=== PATIENT | female | born 1995 | race Caucasian/White ===

== ENCOUNTER 2016-12-06 17:14 | Emergency (ER) | payer OTHER ==
[2016-12-06 19:14] LABS: BILIRUBIN NEGATIVE (NEGATIVE); BLOOD 2+ Ery/uL (NEGATIVE); CLARITY SLIGHTLY HAZY (CLEAR); COLOR YELLOW (YELLOW); GLUCOSE (U) NORMAL (NORMAL); KETONE (U) NEGATIVE (NEGATIVE); LEUKOCYTES NEGATIVE Leu/uL (NEGATIVE); NITRITE NEGATIVE (NEGATIVE); PROTEIN NEGATIVE (NEGATIVE); SPECIFIC GRAVITY >=1.030 (1.001-1.030); UROBILINOGEN 0.2 mg/dL (0.2-1.0); pH 5.5 (5.0-9.0)
[2016-12-06 19:19] LABS: BACTERIA 1+
== END 2016-12-06 19:56 | disposition home or self-care (01) ==
LOC: FER 17:14
PROVIDERS: Nurse Practitioner
DX: B34.9 Viral infection, unspecified (principal)
CPT/HCPCS: 81001; 87450; 99283

== ENCOUNTER 2017-02-18 14:52 | Emergency (ER) | payer OTHER ==
[2017-02-18 17:05] LABS: BILIRUBIN NEGATIVE (NEGATIVE); BLOOD 2+ Ery/uL (NEGATIVE); CLARITY CLEAR (CLEAR); COLOR YELLOW (YELLOW); GLUCOSE (U) NORMAL (NORMAL); KETONE (U) NEGATIVE (NEGATIVE); LEUKOCYTES NEGATIVE Leu/uL (NEGATIVE); NITRITE POSITIVE (NEGATIVE); PROTEIN NEGATIVE (NEGATIVE); SPECIFIC GRAVITY >=1.030 (1.001-1.030); UROBILINOGEN 0.2 mg/dL (0.2-1.0); pH 5.5 (5.0-9.0)
[2017-02-18 17:22] LABS: BACTERIA 2+
[2017-02-18 17:24] LABS: BASOPHIL 0.2 % (0-2); EOSINOPHIL 0.6 % (0-5); HCT 39.4 % (37.0-47.0); HGB 13.9 g/dl (12.5-16.0); LYMPHOCYTE 28.8 % (15-48); MCHC 35.3 g/dL (32.0-36.0); MCV 87.8 fL (78.0-100.0); MPV 9.3 fL (6.0-9.5); NEUTROPHIL 64.4 % (41-80); PLT 277 K/uL (150-400); RBC 4.49 M/uL (4.20-5.40)
[2017-02-18 17:50] LABS: ALBUMIN 4.7 g/dL (3.5-5.0); BILIRUBIN - TOTAL 0.2 mg/dL (0.1-1.0); CREATININE 0.6 mg/dL (0.5-1.0); GLOBULIN (CALCULATION) 3.1 g/dL (2.2-4.2); POTASSIUM 3.6 mmol/L (3.5-5.1); TOTAL PROTEIN 7.8 g/dL (6.4-8.3)
== END 2017-02-18 19:44 | disposition home or self-care (01) ==
LOC: FER 14:52
PROVIDERS: Emergency Medicine
DX: O23.41 Unspecified infection of urinary tract in pregnancy, first trimester (principal); O99.331 Smoking (tobacco) complicating pregnancy, first trimester; F17.210 Nicotine dependence, cigarettes, uncomplicated; Z3A.01 Less than 8 weeks gestation of pregnancy
CPT/HCPCS: 36415; 76817; 80053; 81001; 84702; 85025; 87210

== ENCOUNTER 2017-02-21 16:05 | Emergency (ER) | payer OTHER ==
[2017-02-21 17:00] LABS: BILIRUBIN NEGATIVE (NEGATIVE); BLOOD 3+ Ery/uL (NEGATIVE); CLARITY SLIGHTLY HAZY (CLEAR); COLOR YELLOW (YELLOW); GLUCOSE (U) NORMAL (NORMAL); KETONE (U) NEGATIVE (NEGATIVE); LEUKOCYTES NEGATIVE Leu/uL (NEGATIVE); NITRITE POSITIVE (NEGATIVE); PROTEIN NEGATIVE (NEGATIVE); SPECIFIC GRAVITY 1.025 (1.001-1.030); UROBILINOGEN 0.2 mg/dL (0.2-1.0)
[2017-02-21 17:05] LABS: BACTERIA 4+; SQUAMOUS EPITHELIAL CELLS RARE
[2017-02-21 17:10] LABS: BASOPHIL 0.3 % (0-2); EOSINOPHIL 0.9 % (0-5); HCT 42.5 % (37.0-47.0); HGB 14.7 g/dl (12.5-16.0); LYMPHOCYTE 28.6 % (15-48); MCH 30.6 pg (25.0-31.0); MCHC 34.6 g/dL (32.0-36.0); MCV 88.4 fL (78.0-100.0); MONOCYTE 7.3 % (0-12); MPV 9.7 fL (6.0-9.5); NEUTROPHIL 62.9 % (41-80); PLT 257 K/uL (150-400); RBC 4.81 M/uL (4.20-5.40); RDW 12.1 % (11.5-14.0)
== END 2017-02-21 18:32 | disposition home or self-care (01) ==
LOC: FER 16:05
PROVIDERS: Emergency Medicine
DX: O20.0 Threatened abortion (principal); O23.11 Infections of bladder in pregnancy, first trimester; Z3A.01 Less than 8 weeks gestation of pregnancy; O99.331 Smoking (tobacco) complicating pregnancy, first trimester
CPT/HCPCS: 36415; 81001; 84702; 85025; 86900; 86901

== ENCOUNTER 2020-10-21 23:36 | Emergency (ER) | payer OTHER ==
[~2020-10-21 23:36] MED LIST: BENTYL10 MG PO; METRONIDAZOLE500 MG PO; PRENATABS RX T1 EACH PO; PRENATAL FORMU1 EACH PO
[2020-10-22] MEDS ORDERED: ULTRAM50 MG PO (00:57)
[2020-10-22] MEDS ORDERED: ETODOLAC500 MG PO (00:57)
== END 2020-10-22 01:24 | disposition home or self-care (01) ==
LOC: FER 23:36
DX: S05.01XA Injury of conjunctiva and corneal abrasion without foreign body, right eye, initial encounter (principal); H11.421 Conjunctival edema, right eye; W22.8XXA Striking against or struck by other objects, initial encounter
CPT/HCPCS: 99283; J1885

== ENCOUNTER 2021-05-18 21:34 | Emergency (ER) | payer OTHER ==
[~2021-05-18 21:34] MED LIST changes: +ETODOLAC500 MG PO; +ULTRAM50 MG PO
[2021-05-18 23:24] LABS: BILIRUBIN NEGATIVE (NEGATIVE); BLOOD 1+ Ery/uL (NEGATIVE); CLARITY CLOUDY (CLEAR); COLOR YELLOW (YELLOW); GLUCOSE (U) NORMAL (NORMAL); LEUKOCYTES NEGATIVE Leu/uL (NEGATIVE); NITRITE NEGATIVE (NEGATIVE); PROTEIN NEGATIVE (NEGATIVE); SPECIFIC GRAVITY >=1.030 (1.001-1.030); UROBILINOGEN 0.2 mg/dL (0.2-1.0); pH 5.5 (5.0-9.0)
[2021-05-18 23:36] LABS: AMORPHOUS URATES CRYSTALS LARGE; BACTERIA TRACE
[2021-05-19 01:16] LABS: BASOPHIL 0.4 % (0-2); EOSINOPHIL 1.4 % (0-5); HCT 41.5 % (37.0-47.0); HGB 13.7 g/dl (12.5-16.0); LYMPHOCYTE 34.7 % (15-48); MCH 30.3 pg (25.0-31.0); MCV 91.8 fL (78.0-100.0); MONOCYTE 6.3 % (0-12); MPV 9.2 fL (6.0-9.5); NRBC 0; PLT 238 K/uL (150-400); RBC 4.52 M/uL (4.20-5.40)
[2021-05-19 01:31] LABS: ALBUMIN 3.8 g/dL (3.4-5.0); BILIRUBIN - TOTAL 0.3 mg/dL (0.2-1.0); BUN/CREAT RATIO (CALC) 19.1 RATIO; CREATININE 0.68 mg/dL (0.51-0.95); GLOBULIN (CALCULATION) 3.8 g/dL; POTASSIUM 4.4 mmol/L (3.5-5.1); TOTAL PROTEIN 7.6 g/dL (6.4-8.2)
[2021-05-19] MEDS ORDERED: FLOMAX0.4 MG PO (02:43)
[2021-05-19] MEDS ORDERED: NORCO 5-325 TA1 EACH PO (02:43)
[2021-05-19] MEDS ORDERED: ONDANSETRON ODT4 MG SL (02:43)
[2021-05-19] MEDS ORDERED: ETODOLAC300 MG PO (02:43)
== END 2021-05-19 03:16 | disposition home or self-care (01) ==
LOC: FER 21:34
PROVIDERS: Emergency Medicine Emergency Medical Services
DX: N83.292 Other ovarian cyst, left side (principal); E79.0 Hyperuricemia without signs of inflammatory arthritis and tophaceous disease; F17.200 Nicotine dependence, unspecified, uncomplicated
CPT/HCPCS: 36415; 80053; 81001; 85025; 87088; J0696; J1170; J1885; J2405; J7030

== ENCOUNTER 2021-12-14 11:47 | Emergency (ER) | payer OTHER ==
[~2021-12-14 11:47] MED LIST changes: +ETODOLAC300 MG PO; +FLOMAX0.4 MG PO; +NORCO 5-325 TA1 EACH PO; +ONDANSETRON ODT4 MG SL
[2021-12-14 12:38] LABS: BASOPHIL 0.5 % (0-2); HCT 41.7 % (37.0-47.0); HGB 13.9 g/dl (12.5-16.0); LYMPHOCYTE 25.6 % (15-48); MCH 30.8 pg (25.0-31.0); MCHC 33.3 g/dL (32.0-36.0); MCV 92.5 fL (78.0-100.0); MONOCYTE 6.5 % (0-12); MPV 9.4 fL (6.0-9.5); NEUTROPHIL 65.2 % (41-80); NRBC 0; PLT 239 K/uL (150-400); RBC 4.51 M/uL (4.20-5.40); RDW 12.8 % (11.5-14.0)
[2021-12-14 13:01] LABS: BUN/CREAT RATIO (CALC) 17.3 RATIO; CREATININE 0.75 mg/dL (0.51-0.95); POTASSIUM 3.5 mmol/L (3.5-5.1)
[2021-12-14 13:25] LABS: BILIRUBIN NEGATIVE (NEGATIVE); BLOOD 2+ Ery/uL (NEGATIVE); COLOR YELLOW (YELLOW); GLUCOSE (U) NORMAL (NORMAL); LEUKOCYTES NEGATIVE Leu/uL (NEGATIVE); NITRITE NEGATIVE (NEGATIVE); PROTEIN NEGATIVE (NEGATIVE); SPECIFIC GRAVITY 1.025 (1.001-1.030); UROBILINOGEN 0.2 mg/dL (0.2-1.0)
[2021-12-14 13:26] LABS: CLARITY HAZY (CLEAR)
[2021-12-14 13:32] LABS: SQUAMOUS EPITHELIAL CELLS >50
[2021-12-14] MEDS ORDERED: NORCO 5-325 TA1 EACH PO (14:59)
== END 2021-12-14 15:28 | disposition home or self-care (01) ==
LOC: FER 11:47
PROVIDERS: Nurse Practitioner Family
DX: R10.9 Unspecified abdominal pain (principal); Z28.311 Partially vaccinated for COVID-19
CPT/HCPCS: 36415; 80048; 81001; 85025; J1885

== ENCOUNTER 2022-05-04 16:07 | Emergency (ER) | payer OTHER ==
[2022-05-04 17:15] LABS: CORONAVIRUS 2019 SARS-COV-2 NEGATIVE (NEGATIVE); INFLUENZA A NAA NEGATIVE (NEGATIVE)
[2022-05-04 18:17] LABS: BASOPHIL 0.3 % (0-2); EOSINOPHIL 1.9 % (0-5); HCT 41.7 % (37.0-47.0); HGB 14.1 g/dl (12.5-16.0); LYMPHOCYTE 28.2 % (15-48); MCH 31.3 pg (25.0-31.0); MCHC 33.8 g/dL (32.0-36.0); MCV 92.7 fL (78.0-100.0); MPV 9.5 fL (6.0-9.5); NEUTROPHIL 63.2 % (41-80); NRBC 0; PLT 276 K/uL (150-400); RDW 12.2 % (11.5-14.0); WBC 9.3 K/uL (4.0-10.5)
[2022-05-04 18:25] LABS: ALBUMIN 3.8 g/dL (3.4-5.0); BILIRUBIN - TOTAL 0.3 mg/dL (0.2-1.0); BUN/CREAT RATIO (CALC) 17.9 RATIO; CREATININE 0.67 mg/dL (0.51-0.95); GLOBULIN (CALCULATION) 3.2 g/dL; POTASSIUM 3.8 mmol/L (3.5-5.1)
[2022-05-04 19:30] LABS: BILIRUBIN NEGATIVE (NEGATIVE); BLOOD 3+ Ery/uL (NEGATIVE); CLARITY CLEAR (CLEAR); COLOR YELLOW (YELLOW); GLUCOSE (U) NORMAL (NORMAL); LEUKOCYTES NEGATIVE Leu/uL (NEGATIVE); NITRITE NEGATIVE (NEGATIVE); PROTEIN NEGATIVE (NEGATIVE); UROBILINOGEN 0.2 mg/dL (0.2-1.0); pH 6.5 (5.0-9.0)
[2022-05-04] MEDS ORDERED: ONDANSETRON ODT4 MG PO (20:20)
== END 2022-05-04 20:39 | disposition home or self-care (01) ==
LOC: FER 16:07
PROVIDERS: Nurse Practitioner Family
DX: R11.2 Nausea with vomiting, unspecified (principal); R19.7 Diarrhea, unspecified; Z20.822 Contact with and (suspected) exposure to COVID-19
CPT/HCPCS: 36415; 80053; 81001; 85025; J2405; J7030; Q9967; U0002